=== PATIENT | female | born 1995 | race African-American/Black ===

== ENCOUNTER 2019-11-30 08:23 | Emergency (ER) | payer OTHER ==
[2019-11-30 08:42] VITALS: BP 101/61; PULSE 100; TEMP 100; BMI 21.6
[2019-11-30] MEDS ORDERED: ACETAMINOPHEN 325 MG TABLET (FP) PO ONE (09:30)
[2019-11-30] MEDS ORDERED: ACETAMINOPHEN 500 MG TABLET (FP) ONE (09:30)
--- NOTE | 2019-11-30 09:36 | PDOC ---
History of Present Illness - General Chief Complaint: Cold Symptoms Stated Complaint: COLD SYMPTOMS Time Seen by Provider: 11/30/19 09:28 History Source: Patient Exam Limitations: No Limitations - History of Present Illness Is this a multiple visit Asthma Patient?: No Associated Symptoms: reports: fever/chills, headache, sore throat. denies: cough, earache, facial pain, lightheadedness, muscle aches, nasal drainage, shortness of breath Past History - Travel Traveled outside of the country in the last 30 days: No Close contact w/someone who was outside of country & ill: No - Past Medical History Allergies/Adverse Reactions: Allergies Allergy/AdvReac Type Severity Reaction Status Date / Time No Known Allergies Allergy Verified 11/30/19 08:40 Home Medications: Ambulatory Orders Acetaminophen [Tylenol .Regular Strength -] 650 mg PO Q3H PRN #0 tablet Ibuprofen [Motrin -] 200 mg PO Q4H PRN #0 tablet 07/14/16 Vitamins ([facility]) - 1 tab PO DAILY #30 tablet 07/14/16 Hydrocortisone Acetate [Anusol Hc Suppository -] 25 mg RC DAILY #14 supp.rect Amoxicillin - [Amoxicillin 500mg Capsule -] 500 mg PO BID 10 Days #20 capsule Asthma: No Cancer: No Cardiac Disorders: No COPD: No Diabetes: No HTN: No Seizures: No Thyroid Disease: No - Immunization History Immunization Up to Date: Yes - Psycho Social/Smoking Cessation Hx Smoking History: Never smoked Have you smoked in the past 12 months: No Hx Alcohol Use: No Drug/Substance Use Hx: No Hx Substance Use Treatment: No Review of Systems - Review of Systems Constitutional: Yes: Fever. No: Chills HEENTM: Yes: Throat Pain, Throat Swelling. No: Nose Congestion Respiratory: No: Cough, Shortness of Breath, Stridor Cardiac (ROS): No: Chest Pain ABD/GI: No: Nausea, Vomiting Musculoskeletal: No: Back Pain Neurological: Yes: Headache. No: Numbness, Paresthesia, Weakness, Ataxia, Dizziness *Physical Exam - Vital Signs Last Vital Signs Temp Pulse Resp BP Pulse Ox 100.0 F H 100 H 18 101/61 99 11/30/19 08:40 11/30/19 08:40 11/30/19 08:40 11/30/19 08:40 11/30/19 08:40 - Physical Exam General Appearance: Yes: Nourished HEENT: positive: EOMI, DC, Pharyngeal Erythema. negative: Tonsillar Exudate, Tonsillar Erythema, Nasal Congestion, Rhinorrhea, Sinus Tenderness, TM Erythema Respiratory/Chest: positive: Lungs Clear, Normal Breath Sounds Cardiovascular: positive: Regular Rhythm, Regular Rate, S1, S2 Integumentary: positive: Normal Color Neurologic: positive: adobe layer helper II-XII NML intact, Fully Oriented, Alert, Normal Mood/ Affect, Normal Response, Motor Strength /5 Medical Decision Making - Medical Decision Making 11/30/19 09:34 24 years old female with no prior medical history presents with sore throat headaches and fever for 2 days. Son was recently treated for strep patient is here to rule out strep. She denies cough, drooling, stridor. No body aches. Examination consistent of pharygneal erythema there is no swelling or [employer]. Rapid strep sent 11/30/19 10:47 rapid strep + Rx for abx sent Discharge - Discharge Information Problems reviewed: Yes Clinical Impression/Diagnosis: Strep pharyngitis Condition: Stable Disposition: HOME - Admission No - Additional Discharge Information Prescriptions: Amoxicillin - [Amoxicillin 500mg Capsule -] 500 mg PO BID 10 Days #20 capsule Prescription Drug Monitoring Program (I-STOP) results: I-STOP not reviewed - Follow up/Referral - Patient Discharge Instructions Patient Printed Discharge Instructions: DI for Strep Throat Additional Instructions: Your strep was positive today. Please take antibiotics as prescribed. Gargle with salt warm water. Return to the emergency room if worsening symptoms occurs. - Post Discharge Activity
== END 2019-11-30 10:46 | disposition home or self-care (01) ==
LOC: JERFT 08:23
DX: J02.0 Streptococcal pharyngitis (principal); B95.0 Streptococcus, group A, as the cause of diseases classified elsewhere
CPT/HCPCS: 87880; 99283-25